=== PATIENT | male | born 1980 | race Two or more races ===

== ENCOUNTER 2016-07-21 12:59 | Emergency (ER) | payer OTHER ==
[~2016-07-21] VITALS: Ht 177.8 cm; Wt 95.3 kg
[2016-07-21 13:05] VITALS: BP 132/85
[2016-07-21] MEDS ORDERED: FLUORESCEIN SODIUM OPHTH 1 EA STRIP ONE (13:13)
[2016-07-21] MEDS ORDERED: TETRACAINE HCL/PF 0.5% UD 2 ML BOTTLE ONE (13:13)
== END 2016-07-21 13:44 | disposition home or self-care (01) ==
LOC: ER 13:01
DX: S05.01XA Injury of conjunctiva and corneal abrasion without foreign body, right eye, initial encounter (principal); X58.XXXA Exposure to other specified factors, initial encounter; Y92.89 Other specified places as the place of occurrence of the external cause; Y93.89 Activity, other specified; Y99.8 Other external cause status
CPT/HCPCS: 99283; A4606; Z7610